=== PATIENT | male | born 1935 | race Caucasian/White ===

== ENCOUNTER → 2018-05-27 05:00 | Outpatient (REF) | payer MEDICARE, SELFPAY ==
[2018-05-27 07:35] LABS: Absolute Lymphocyte Count 2.73 X10^3/ul (0.83-4.51); Absolute Neutrophil Count 3.3 X10^3/uL (2.0-7.7); Basophil# 0.07 X10^3/uL; Eosinophil# 0.46 X10^3/uL; Eosinophils% 6.5 % (0-5); Hematocrit 36.9 % (40-54); Lymphocyte # 2.73 X10^3/ul (4.0); Lymphocyte % 38.5 % (19-41); Mean Corp Hgb Conc 32.5 g/gl (32-36); Mean Corpuscular Hgb 29.8 pg (27.0-32.0); Mean Corpuscular Volume 91.6 fL (80-94); Mean Platelet Vol. 10.1 fl (6.2-12.0); Monocyte# 0.55 X10^3/uL; Monocyte% 7.8 % (0-10); Neutrophil # 3.28 X10^3/uL (2.7-7.7); Neutrophil % 46.2 % (47-70); Platelet Count 205 K/mm3 (150-450); RBC Distribution Width CV 12.9 % (11.6-14.6); RBC Distribution Width SD 41.9 fl (35.1-43.9); Red Blood Count 4.03 M/mm3 (4.6-6.2); White Blood Count 7.1 K/mm3 (4.4-11.0)
[2018-05-27 07:37] LABS: POSITIVE COUNT NO; POSITIVE DIFFERENTIAL NO; POSITIVE MORPHOLOGY NO
[2018-05-27 07:51] LABS: Hemoglobin A1c 8.4 % (4.2-6.3)
[2018-05-27 07:53] LABS: Cholesterol 143 mg/dL (200); High Density Lipoprotein 51 mg/dL; Triglycerides 134 mg/dL; Very Low Density Lipoprotein 27 mg/dL (5-40)
== END ==
LOC: OLS.AVEB 05:00
PROVIDERS: Visit Provider Student in an Organized Health Care Education/Training Program
DX: I48.91 Unspecified atrial fibrillation (principal); E78.5 Hyperlipidemia, unspecified
CPT/HCPCS: 36415; 80061; 83036; 85025

== ENCOUNTER 2019-11-12 10:03 | Emergency (ER) | payer MEDICARE, OTHER, SELFPAY ==
[2019-11-12 10:04] VITALS: BP 151/69; PULSE 87; RESP 16; TEMP 36.2; O2SAT 96; BMI 30.4
--- NOTE | 2019-11-12 10:23 | CT_ITS ---
STUDY: CT BRAIN WITHOUT CONTRAST REASON FOR EXAM: Male, 84 years old. Trauma, fell 2 days ago, complains of headache, neck pain/stiffness. Hx prostate cancer, diabetes, hypertension. RADIATION DOSAGE (If Supplied By Facility): CTDIvol = ( 44.99 ) mGy, DLP = ( 796.11 ) mGycm TECHNIQUE: Transaxial CT imaging of the brain was performed without administration of intravenous contrast material. Individualized dose optimization techniques were used for this CT. COMPARISON: 12/02/2016 FINDINGS: Normal soft tissue structures. Normal calvarium. There is moderate cerebral atrophy with widening of the extra-axial spaces and ventricular dilatation. There are areas of decreased attenuation within the white matter tracts of the supratentorial brain, consistent with microvascular disease changes. Normal basal ganglia and thalami. Normal brainstem. Normal cerebellum. There is no intracranial hemorrhage. There are no findings of an acute ischemic infarction. There is mucoperiosteal inflammatory disease of the paranasal sinuses consistent with moderate chronic sinusitis. CT/Brain/Head without Contrast IMPRESSION: Chronic involutional changes of the brain. Electronically Signed: Corey Perez MD at 11:33 EDT Tel , Service support ,
--- NOTE | 2019-11-12 10:23 | CT_ITS ---
STUDY: CT CERVICAL SPINE WITHOUT CONTRAST REASON FOR EXAM: Male, 84 years old. Trauma, fell 2 days ago, complains of headache, neck pain/stiffness. Hx prostate cancer, diabetes, hypertension. RADIATION DOSAGE (If Supplied By Facility): CTDIvol = ( 24.36 ) mGy, DLP = ( 552.07 ) mGycm TECHNIQUE: High resolution transaxial imaging was performed without contrast material. Sagittal and coronal images were reconstructed. Individualized dose optimization techniques were used for this CT. COMPARISON: 12/02/2016 FINDINGS: Normal craniovertebral junction. There are degenerative changes of the anterior atlantoaxial articulation. Acute nondisplaced fracture through the base of the odontoid process consistent with a type II dens fracture. Normal cervical lordosis. Normal vertebral bodies and posterior osseous elements. C2-3: Mild left facet hypertrophy with ankylosis of the facet joint. No spinal stenosis or neural foraminal stenosis. C3-4: Moderate right facet hypertrophy with ankylosis of the facet joint. No spinal stenosis or neural foraminal stenosis. C4-5: Moderate right facet hypertrophy. No spinal stenosis or neural foraminal stenosis. C5-6: Mild broad disc osteophyte complex produces mild spinal stenosis and mild bilateral neural foraminal stenosis. C6-7: Mild broad disc osteophyte complex produces mild spinal stenosis and mild bilateral neural foraminal stenosis. C7-T1: Normal endplates. Normal disc height and morphology. Normal central canal and intervertebral neuroforamina. Normal visualized soft tissue structures. CT/Spine Cervical without Contras IMPRESSION: Acute nondisplaced type II dens fracture. Electronically Signed: Corey Perez MD at 11:32 EDT Tel , Service support ,
--- NOTE | 2019-11-12 10:27 | ED.DCSUM_ITS ---
- ER Visit Summary Date of Service: 11/12/19 Chief Complaint: [Fall with head injury] History of Present Illness: The patient is a 84 M [presents to the emergency department after sustaining a fall 2 days ago. Per fdc staff patient try to pick something up off the floor while sitting causing him to lose his balance and actually fell backward striking the back of his head. No loss of consciousness. Patient apparently this morning was complaining of a headache and had unequal pupils per [facility] staff and sent to the ER for evaluation. Patient also complains of pain in his neck. He denies any paresthesias or weakness in extremities. He has had no nausea or vomiting. Patient states that at rest he really does not have much of a headache but when he moves he develops a headache. Patient has history of coronary artery disease, diabetes, hypertension, anemia, and mild dementia.] Physical Examination: [HEENT-PERRLA, EOMI. Cranial nerves II through XII grossly intact. TMs clear. Mucous membranes moist. No adenopathy. Patient has an area of slight erythema and superficial skin abrasion to the posterior occiput near the base of the neck. Patient has tenderness palpation over the C1-C2 area on exam. No bony step-offs noted. Patient has pain with range of mo tion in neck. Cardiovascular-regular rate and rhythm without murmur or ectopy Lungs-clear to auscultation, chest wall stable without crepitus or subcu emphysema Abdomen-normoactive bowel sounds, soft, nontender, no rebound or rigidity, no peritoneal signs. Extremities-intact ?4, normal range of motion, normal pulses, atraumatic] Test Results: [CT scan of the brain showed chronic involutional changes. CT of the C-spine showed nondisplaced dens fracture type II.] Emergency Department Course and Treatment: [Patient was placed in a cervical collar. Patient was discussed with [facility] at the request of family for transfer.] Treatment Plan: [Transfer to [facility] for neurosurgical evaluation] Disposition: [Transfer] Impression: [Mechanical fall C2 fracture] This note was generated with Quemulusation software. It may contain incorrect words, spelling, and punctuation that were not noted in review of the chart prior to signing ED Disposition - Plan for ED Patient: Referrals: [facility] [STAFF PHYSICIAN] -
[2019-11-12 12:04] VITALS: BP 167/70; PULSE 91; RESP 18; O2SAT 98
--- NOTE | 2019-11-12 12:30 | NURSING ---
THIS RN SPOKE TO [facility] BHAKTA. INFORMED THAT PT WILL BE TRANSFERRED TO [facility].
[2019-11-12 12:34] VITALS: BP 171/77; PULSE 97; RESP 18; O2SAT 98
--- NOTE | 2019-11-12 13:13 | ED.RN ---
PER PHYSICIANS 30 MINUTE DELAY ON ETA
== END 2019-11-12 13:55 | disposition short-term general hospital (02) ==
PROVIDERS: Emergency Provider Emergency Medicine; PCP Student in an Organized Health Care Education/Training Program
DX: S12.112A Nondisplaced Type II dens fracture, initial encounter for closed fracture (principal); S00.01XA Abrasion of scalp, initial encounter; W19.XXXA Unspecified fall, initial encounter; Y93.9 Activity, unspecified; Y92.9 Unspecified place or not applicable; I25.10 Atherosclerotic heart disease of native coronary artery without angina pectoris; E11.9 Type 2 diabetes mellitus without complications; I10 Essential (primary) hypertension; F03.90 Unspecified dementia, unspecified severity, without behavioral disturbance, psychotic disturbance, mood disturbance, and anxiety; D64.9 Anemia, unspecified; E78.00 Pure hypercholesterolemia, unspecified; Z79.82 Long term (current) use of aspirin; Z79.84 Long term (current) use of oral hypoglycemic drugs; Z79.899 Other long term (current) drug therapy
CPT/HCPCS: 70450; 72125; 99283; A4216

== ENCOUNTER 2019-11-21 06:35 | Emergency (ER) | payer MEDICARE, OTHER, SELFPAY ==
[2019-11-21 06:38] VITALS: BP 129/51; PULSE 89; RESP 14; TEMP 36.3; O2SAT 98; BMI 26.3
--- NOTE | 2019-11-21 06:45 | CT_ITS ---
STUDY: CT BRAIN WITHOUT CONTRAST REASON FOR EXAM: Male, 84 years old. FALL RADIATION DOSAGE (If Supplied By Facility): CTDIvol = ( 44.99 ) mGy, DLP = ( 782.05 ) mGycm TECHNIQUE: Transaxial CT imaging of the brain was performed without administration of intravenous contrast material. Individualized dose optimization techniques were used for this CT. COMPARISON: Comparison is made with prior study dated 11/12/2019. FINDINGS: Normal soft tissue structures. Normal calvarium. There is moderate cerebral atrophy with widening of the extra-axial spaces and ventricular dilatation. There are areas of decreased attenuation within the white matter tracts of the supratentorial brain, consistent with microvascular disease changes. Stable small old lacunar infarcts involving the basal ganglia bilaterally. Normal brainstem. There is mild cerebellar atrophy. There is no intracranial hemorrhage. There are no findings of an acute ischemic infarction. Atherosclerotic calcification of the vertebral arteries and cavernous portions of the internal carotid arteries bilaterally. Small level in the left maxillary sinus and left sphenoid sinus. Mucosal thickening of the ethmoid sinuses bilaterally. CT/Brain/Head without Contrast IMPRESSION: Chronic involutional changes of the brain. Electronically Signed: Ga Forrest, at 8:16 EDT , Service support ,
--- NOTE | 2019-11-21 06:45 | CT_ITS ---
STUDY: CT CERVICAL SPINE WITHOUT CONTRAST REASON FOR EXAM: Male, 84 years old. FALL RADIATION DOSAGE (If Supplied By Facility): CTDIvol = ( 23.11 ) mGy, DLP = ( 543.97 ) mGycm TECHNIQUE: High resolution transaxial imaging was performed without contrast material. Sagittal and coronal images were reconstructed. Individualized dose optimization techniques were used for this CT. COMPARISON: Comparison is made with prior study dated 11/12/2019. FINDINGS: Normal craniovertebral junction. There are degenerative changes of the anterior atlantoaxial articulation. Stable nondisplaced fracture at the base of the odontoid being compared with the type II dens fracture. Normal cervical lordosis. Normal vertebral bodies and posterior osseous elements. C2-3: Facet joint osteoarthritis and hypertrophy. Uncovertebral arthrosis. C3-4: Facet joint osteoarthritis and hypertrophy worse on the right side. Uncovertebral arthrosis. Moderate degree of right neural foraminal stenosis. C4-5: Facet joint osteoarthritis and hypertrophy more prominent on the right side. Moderate degree of right neural foraminal stenosis. C5-6: Disc space narrowing. Facet joint osteoarthritis and hypertrophy worse on the left side. Uncovertebral arthrosis. Bilateral neural foraminal stenosis more prominent on the left side. C6-7: Spondylolysis. Facet joint osteoarthritis. Mild bilateral neural foraminal stenosis. C7-T1: Normal endplates. Normal disc height and morphology. Normal central canal and intervertebral neuroforamina. Atherosclerotic calcification of the carotid bifurcations. CT/Spine Cervical without Contras IMPRESSION: Multilevel degenerative changes, as described above. Stable appearance of the nondisplaced fracture at the base of the dens. Electronically Signed: Ga Forrest, at 8:19 EDT , Service support ,
--- NOTE | 2019-11-21 06:59 | ED.DCSUM_ITS ---
History of Present Illness Narrative: Patient presenting from the [facility] secondary to concerns for a fall. Patient has been admitted at the [facility] since the secondary to a nondisplaced C2 fracture. He supposed to be in a cervical collar, but only intermittently wears it secondary to his underlying dementia. Patient reportedly had some falls tonight. Patient is demented, is unable to provide additional history. Patient states that I have a cracked back but denies any pain unless he is moving. He denies any numbness or weakness. Review of systems otherwise negative through the patient. <RadhikaRoverto - Last Filed: 11/21/19 06:59> <Eliezer Ramirez - Last Filed: 11/21/19 08:54> Chief Complaint: Fall Past Medical History Prior records reviewed: Yes Past Medical History: - - Dementia, C2 fracture Surgical History: appendectomy Smoking Status: Never smoker <RadhikaRoverto - Last Filed: 11/21/19 06:59> <Eliezer Ramirez - Last Filed: 11/21/19 08:54> - Allergies and Home Meds Allergies/Adverse Reactions: Allergies No Known Allergies Allergy (Verified 11/12/19 10:06) Primary Care Physician: Wilner Serna MD [Primary Care Provider] - Keep Cecy appointment Review of Systems ROS: Unable to Obtain - Limited secondary to dementia <Roverto Garrido - Last Filed: 11/21/19 06:59> Physical Exam Vital Signs/Narrative: Vital Signs Temp Pulse Resp BP Pulse Ox 11/21/19 06:38 97.3 F L 89 14 129/51 H 98 Inital Vital Signs reviewed: Yes General: Well nourished, Well developed Head: Normocephalic, Atraumatic Eyes: Perrl, EOMI ENT: - - Patient does not complain of any midline neck tenderness Neck: Nontender. Negative for: Spinal Tenderness Cardiovascular: Regular rate, Regular rhythm, - - 2+ radial pulses bilaterally symmetric Respiratory: No distress, CTA bilaterally, Chest nontender Abdomen: Soft, Nontender, Nondistended, Normal bowel sounds Back: Nontender, - - No step-offs noted Extremeties: Extremities are atraumatic, no evidence of deformity. No limitations of range of motion. Skin: Normal color, No rash Neurological: Alert, - - Patient is alert to person, no lateralizing neurological deficits <RadhikaRoverto - Last Filed: 11/21/19 06:59> Vital Signs/Narrative: Vital Signs Temp Pulse Resp BP Pulse Ox 11/21/19 06:38 97.3 F L 89 14 129/51 H 98 <Eliezer Ramirez - Last Filed: 11/21/19 08:54> Diagnostic/Tx/Re-eval - Medical Decision Making Patient was seen and evaluated by myself initially in the emergency department. He presented secondary to a fall. He has no outward signs of trauma. He did come in without his cervical collar on, this was replaced by nursing staff. Repeat CT scan of the brain and cervical spine were ordered, there were no other outward signs of trauma, no other indication for imaging. Patient will be signed out to the oncoming physician will follow up on the patient's radiology studies and disposition the patient. <RadhikaRoverto - Last Filed: 11/21/19 06:59> Clinical Impression(s) from Imaging Studies Brain CT 11/21/19 06:45 IMPRESSION: Chronic involutional changes of the brain. Electronically Signed: Ga Forrest, at 8:16 EDT , Service support , Cervical Spine CT 11/21/19 06:45 IMPRESSION: Multilevel degenerative changes, as described above. Stable appearance of the nondisplaced fracture at the base of the dens. Electronically Signed: Ga Forrest, at 8:19 EDT , Service support , - Medical Decision Making CT is returned with no acute findings. [facility] Instructions to continue wearing collar with fall precautions. <Eliezer Ramirez - Last Filed: 11/21/19 08:54> ED Disposition <RadhikaRoverto - Last Filed: 11/21/19 06:59> <Eliezer Ramirez - Last Filed: 11/21/19 08:54> - Plan for ED Patient: Disposition: [facility] Facility Diagnosis: Fall, Closed head injury, Closed C2 fracture Instructions: ED Head Injury Adult Referrals: Wilner Serna MD [Primary Care Provider] - Keep Cecy appointment Additional Instructions: You need to be wearing your cervical collar at all times Fall precautions.
[2019-11-21 09:33] VITALS: PULSE 87; RESP 18; O2SAT 97
--- NOTE | 2019-11-21 10:22 | CM.ED ---
Social Work Consult: Support/Resources Informant: SUMIT Rico Met with patient/patient daughter in room. Introduced self and protective services social worker role. Daughter, Zaynab inquiring about transitioning patient to a different long-term home. Patient currently is a resident at [facility]. Zaynab is wanting patient to transfer to the [facility]. Currently patient has already been discharged from the Emergency Room. Zaynab aware that transfer will not be possible today but advised by this protective services social worker to reach out to the protective services social worker at the [facility]. This protective services social worker explaining the process of a transfer and answering Zaynab's questions in regards to Medicare Skilled benefit. Zaynab thanking this protective services social worker. Active listening and support provided. Transportation now arriving to bring patient back to the [facility]. Mickie Troy MSW, ROSIE
== END 2019-11-21 10:30 | disposition skilled nursing facility (03) ==
PROVIDERS: Emergency Provider Emergency Medicine; PCP Family Medicine
DX: S12.112A Nondisplaced Type II dens fracture, initial encounter for closed fracture (principal); S09.90XA Unspecified injury of head, initial encounter; W19.XXXA Unspecified fall, initial encounter; Z91.81 History of falling; Y93.9 Activity, unspecified; Y92.9 Unspecified place or not applicable; F03.90 Unspecified dementia, unspecified severity, without behavioral disturbance, psychotic disturbance, mood disturbance, and anxiety; Z79.899 Other long term (current) drug therapy
CPT/HCPCS: 70450; 72125; 99284

== ENCOUNTER 2021-05-16 15:00 | Inpatient (IN) | payer MEDICARE, OTHER, SELFPAY ==
[2021-05-16] VITALS (10 sets, daily range): BP systolic 107–135; BP diastolic 48–74; PULSE 75–100; RESP 14–20; TEMP 36.4–37.1; O2SAT 94–98; BMI 25.2; BMI 22.3
--- NOTE | 2021-05-16 15:09 | CT_ITS ---
STUDY: CT BRAIN WITHOUT CONTRAST REASON FOR EXAM: Male, 85 years old. Confusion RADIATION DOSAGE (If Supplied By Facility): CTDIvol = ( 44.99 ) mGy, DLP = ( 812.98 ) mGycm TECHNIQUE: Transaxial CT imaging of the brain was performed without administration of intravenous contrast material. Individualized dose optimization techniques were used for this CT. COMPARISON: 11/21/2019 FINDINGS: Normal soft tissue structures. Normal calvarium. There is mild cerebral atrophy with widening of the extra-axial spaces and ventricular dilatation. There are areas of decreased attenuation within the white matter tracts of the supratentorial brain, consistent with microvascular disease changes. Normal basal ganglia and thalami. Normal brainstem. Normal cerebellum. There is no intracranial hemorrhage. There are no findings of an acute ischemic infarction. Normal visualized paranasal sinuses. CT/Brain/Head without Contrast IMPRESSION: No acute intracranial hemorrhage or mass effect. Electronically Signed: Roldan Quispe MD (Brooks) at 16:19 EDT Reading Location ID and State: / [place] , Service support ,
--- NOTE | 2021-05-16 15:09 | EKG12_ITS ---
Test Reason : Blood Pressure : / mmHG Vent. Rate : 080 BPM Atrial Rate : 080 BPM P-R Int : 232 ms QRS Dur : 096 ms QT Int : 334 ms P-R-T Axes : 029 022 096 degrees QTc Int : 385 ms Sinus rhythm with 1st degree A-V block with Premature atrial complexes Anteroseptal infarct , age undetermined Abnormal ECG Confirmed by MICHA PATEL, ELVIS ([id number]), staff editor JORY JIMENEZ ([id number]) on 05/19/2021 11:04:52 A M Referred By: SANDHYA Confirmed By:JUDY MUSE MD
--- NOTE | 2021-05-16 15:10 | EDS_ITS ---
HPI History of Present Illness Chief Complaint: Alt LOC Narrative Narrative: [facility] with reported altered level of consciousness. He is usually alert and oriented x2, and is an assist 1 according to the RN. However, they noticed today that he has had increased confusion along with needing more assistance to a level 2 or 3. Patient denies any fever or chills, no problems with cough. He states he feels pretty good. History and physical is limited secondary to age, and he is hard of hearing. [facility] Medical History Anemia Atherosclerotic cardiovascular disease BPH (benign prostatic hyperplasia) Bronchitis Dysphagia HTN (hypertension) Hyperlipemia Low back pain Sciatica Type 2 diabetes mellitus Home Medications metformin 1,000 mg PO BIDCM 02/02/13 [History Last Taken 02/02/13] albuterol sulfate 180 mcg INHALATION Q4H PRN 05/16/21 [History Last Taken Unknown] aspirin [Aspirin Low Dose] 81 mg PO DAILY 05/16/21 [History Last Taken Unknown] cholecalciferol (vitamin D3) 25 mcg PO DAILY 05/16/21 [History Last Taken Unknown] cyanocobalamin (vitamin B-12) [Vitamin B-12] 1,000 mcg PO DAILY 05/16/21 [History Last Taken Unknown] hydrochlorothiazide 12.5 mg PO DAILY 05/16/21 [History Last Taken Unknown] insulin glargine [Lantus Solostar U-100 Insulin] 16 unit SUBCUT DAILY 05/16/21 [History Last Taken Unknown] insulin lispro [Humalog KwikPen Insulin] 2 unit SUBCUT TIDCM 05/16/21 [History Last Taken Unknown] metoprolol tartrate 25 mg PO BID 05/16/21 [History Last Taken Unknown] ondansetron HCl 4 mg PO Q8H PRN 05/16/21 [History Last Taken Unknown] rosuvastatin 10 mg PO DAILY 05/16/21 [History Last Taken Unknown] tamsulosin 0.8 mg PO DAILY 05/16/21 [History Last Taken Unknown] Allergy/AdvReac Type Severity Reaction Status Date / Time No Known Allergies Allergy Verified 07/24/20 14:40 Social History Smoking Status: Never smoker ROS ROS ED ROS Narrative Review of systems limited secondary to age/memory problems Constitutional: No fever, no chills. HEENT: No sore throat. No neck pain. No loss of vision. No rhinorrhea. Cardiovascular: No chest pain. No palpitations. No pedal edema. Respiratory: No cough, no shortness of breath. Abdominal: No abdominal pain. No nausea. No vomiting. Genitourinary: No dysuria. No hematuria. Musculoskeletal: No myalgias. No arthralgias. Neurologic: No headaches. No dizziness. No lightheadedness. Skin: No rash. No change in color. Psychiatric: No depression. No anxiety. EXAM Physical Exam Narrative Exam Narrative: Afebrile. Vital signs noted. HEENT: Normocephalic. Atraumatic. PERRL, EOMI. Neck soft and supple. No point tenderness or step off. Cardiovascular: Regular rate and rhythm. No murmurs, rubs, or gallops appreciated. Respiratory: No tachypnea. Lungs clear to auscultation bilaterally. Gastrointestinal: Abdomen soft, nontender, with normoactive bowel sounds. No rebound or guarding. Neurological: Awake. Alert. Nonfocal, nonlateralizing. Skin: No rash. Normal color. No pallor. Decubitus ulcer on left heel with serosanguineous drainage. Musculoskeletal: No pedal edema. Full range of motion extremities. Const Vital Signs: 05/16/21 15:04 05/16/21 15:09 05/16/21 16:59 Temperature 98.0 F 98.0 F 98.4 F Temperature Source Oral Oral Temporal Pulse Rate 83 83 75 Respiratory Rate 20 H 20 H 18 Respiratory Pattern Normal Blood Pressure 126/59 H 126/59 H 120/55 L Blood Pressure Mean 81 81 76 Pulse Ox 96 96 98 Oxygen Delivery Method Room Air Room Air Room Air MDM MDM MDM Narrative Medical decision making narrative: Comprehensive work-up was pursued. Patient has normal white count of 9.4, hemoglobin slightly low 11.9. Normal platelet count of 175. He has hypokalemia of 2.6. He was started on 40 mEq intravenously as replacement. Sodium low at 135. Creatinine is slightly elevated above his baseline at 1.56 with a BUN of 32 consistent with dehydration. His lactic acid is elevated at 3.1. However, I do not feel that he meets any sepsis criteria as of yet as he has a normal white count and is afebrile here. He is not tachycardic currently. Urinalysis shows 50-100 WBCs. He was started on Rocephin for this. Given his hypokalemia, dehydration, and UTI, I discussed the patient with Dr. Mckenzie who will admit him to the PCU. Patient is in stable condition. Lab Data Attestation: I reviewed the patient's lab results. Labs: Laboratory Results - last 24 hr 05/16/21 05/16/21 05/16/21 15:33 15:33 15:33 WBC 9.4 RBC 3.91 L Hgb 11.9 L Hct 34.0 L MCV 87.0 MCH 30.4 MCHC 35.0 RDW Std Deviation 43.5 RDW Coeff of [place] 13.8 Plt Count 175 MPV 10.1 Immature Gran % (Auto) 0.400 Neut % (Auto) 83.8 H Lymph % (Auto) 11.0 L [place] % (Auto) 4.6 Eos % (Auto) 0.1 Baso % (Auto) 0.1 Absolute Neuts (auto) 7.9 H Absolute Lymphs (auto) 1.04 Nucleated RBC % 0 Sodium 135 L Potassium 2.6 L* Chloride 100 Carbon Dioxide 25.0 Anion Gap 10 BUN 32 H Creatinine 1.56 H Estim Creat Clear Calc 30.67 Est GFR (MDRD) Af Amer 54 L Est GFR (MDRD) Non-Af 45 L BUN/Creatinine Ratio 20.5 H Glucose 166 H Lactic Acid 3.1 H* Calcium 9.2 Total Bilirubin 1.60 H AST 48 H ALT 34 Alkaline Phosphatase 77 Total Protein 6.7 Albumin 2.8 L Globulin 3.9 Albumin/Globulin Ratio 0.7 L Urine Color Urine Clarity Urine pH Ur Specific [place] Urine Protein Urine Glucose (UA) Urine Ketones Urine Occult Blood Urine Nitrite Urine Bilirubin Urine Urobilinogen Ur Leukocyte Esterase Urine RBC Urine WBC Ur Squamous Epith Cells Ur Transition Epith Cell Urine Bacteria Urine Mucus 05/16/21 17:05 WBC RBC Hgb Hct MCV MCH MCHC RDW Std Deviation RDW Coeff of [place] Plt Count MPV Immature Gran % (Auto) Neut % (Auto) Lymph % (Auto) [place] % (Auto) Eos % (Auto) Baso % (Auto) Absolute Neuts (auto) Absolute Lymphs (auto) Nucleated RBC % Sodium Potassium Chloride Carbon Dioxide Anion Gap BUN Creatinine Estim Creat Clear Calc Est GFR (MDRD) Af Amer Est GFR (MDRD) Non-Af BUN/Creatinine Ratio Glucose Lactic Acid Calcium Total Bilirubin AST ALT Alkaline Phosphatase Total Protein Albumin Globulin Albumin/Globulin Ratio Urine Color Yellow Urine Clarity Sl. Cloudy Urine pH 6.0 Ur Specific [place] 1.020 Urine Protein 100 H Urine Glucose (UA) 50 H Urine Ketones 5 H Urine Occult Blood 25 H Urine Nitrite Positive H Urine Bilirubin Negative Urine Urobilinogen 1 H Ur Leukocyte Esterase 500 H Urine RBC 0-5 SEEN Urine WBC 50-100 SEEN Ur Squamous Epith Cells 0 SEEN Ur Transition Epith Cell 0-5 SEEN Urine Bacteria 2+ Urine Mucus 0 SEEN Radiography Diagnostic Testing: Clinical Impression(s) from Imaging Studies Brain CT 05/16/21 15:09 IMPRESSION: No acute intracranial hemorrhage or mass effect. Electronically Signed: Roldan Quispe MD (Brooks) at 16:19 EDT Reading Location ID and State: / [place] , Service support , Chest X-Ray 05/16/21 16:10 IMPRESSION: 1. No airspace consolidation or pleural effusion. Electronically Signed: Roldan Quispe MD (Brooks) at 16:20 EDT , Treatment and Re-Evaluation Narrative: Comprehensive work-up was pursued. According to his paperwork, patient has diabetes, hypertension, hypercholesterolemia. He will be worked up for debility. Discharge Plan Dx/Rx/DC Orders Clinical Impression: Hypokalemia, Dehydration, Generalized weakness, Dementia, UTI (urinary tract infection) Disposition Disposition: Acute Care Hospital [facility]
[2021-05-16 15:51] LABS: Absolute Lymphocyte Count 1.04 X10^3/uL (0.83-4.51); Absolute Neutrophil Count 7.9 X10^3/uL (2.0-7.7); Basophil# 0.01 X10^3/uL; Basophil% 0.1 % (0-1); Eosinophil# 0.01 X10^3/uL; Eosinophils% 0.1 % (0-5); Hemoglobin 11.9 g/dL (13.0-16.5); Lymphocyte # 1.04 X10^3/ul (0.83-4.51); Mean Corpuscular Hgb 30.4 pg (27.0-32.0); Mean Platelet Vol. 10.1 fl (6.2-12.0); Monocyte# 0.43 X10^3/uL; Monocyte% 4.6 % (0-10); NRBC Flagged by Analyzer 0 % (0-5); Neutrophil # 7.89 X10^3/uL (2.7-7.7); Neutrophil % 83.8 % (47-70); Platelet Count 175 K/mm3 (150-450); RBC Distribution Width CV 13.8 % (11.6-14.6); RBC Distribution Width SD 43.5 fl (35.1-43.9); Red Blood Count 3.91 M/mm3 (4.6-6.2); White Blood Count 9.4 K/mm3 (4.4-11.0)
[2021-05-16 16:05] LABS: ALB/GLOB Ratio 0.7 RATIO (0.9-2.4); AST(SGOT) 48 U/L (15-37); Alanine Aminotransfer ALT/SGPT 34 U/L (16-61); Albumin, Serum 2.8 g/dL (3.2-5.0); Alkaline Phosphatase 77 U/L (45-117); Anion Gap 10 (5-15); BUN 32 mg/dL (7-18); BUN/Creat Ratio 20.5 RATIO (10-20); Calcium,Total 9.2 mg/dL (8.5-10.1); Chloride 100 mmol/L (98-107); Creatinine, Serum 1.56 mg/dL (0.70-1.30); EST Glomerular Filtration Rate 45 mL/min (>60); Est Glom Filt Rate - Afr Amer 54 mL/min (>60); Estimated Creatinine Clearance 30.67 ml/min; Globulin 3.9 g/dL (2.2-4.2); Glucose 166 mg/dL (74-106); Potassium 2.6 mmol/L (3.5-5.1); Protein, Total 6.7 g/dL (6.4-8.2); Sodium Level 135 mmol/L (136-145)
--- NOTE | 2021-05-16 16:10 | RAD_ITS ---
STUDY: X-RAY CHEST REASON FOR EXAM: Male, 85 years old. Increasing confusion TECHNIQUE: AP COMPARISON: 02/02/2013 FINDINGS: EKG leads project over the chest. Sternal wires and mediastinal surgical clips compatible with prior CABG. Lungs are underexpanded. There is no demonstrated pleural abnormality. There is mild cardiac enlargement. Normal mediastinum and cuco. Normal visualized pulmonary arteries. There is atherosclerotic calcification of the aortic arch with tortuosity. No acute bony process. There is no demonstrated abnormality of the visualized soft tissue structures of the upper abdomen. RAD/Chest 1 View (Portable) IMPRESSION: 1. No airspace consolidation or pleural effusion. Electronically Signed: Roldan Quispe MD (Brooks) at 16:20 EDT ,
[2021-05-16 16:15] LABS: Lactic Acid 3.1 mmol/L (0.4-1.9)
[2021-05-16] MEDS: Potassium Chloride 10mEq/100mL 10 MEQ/100 ML IV.SOLN. 100 MEQ IV BOLUS ×4 (17:01→20:09)
[2021-05-16 17:11] LABS: Mucous, Urine 0 SEEN /hpf (<or=2+); Squamous Epithelial Cells - UA 0 SEEN /hpf (0-5)
[2021-05-16 17:12] LABS: Color, Urine Yellow (Yellow); Glucose, Dipstick 50 mg/dl (Normal); Ketone-Dipstick 5 mg/dl (Negative); Leukocyte Esterase-Dipstick 500 /ul (Negative); Nitrite-Dipstick Positive (Negative); Occult Blood-Urine 25 /ul (Negative); Protein-Dipstick 100 mg/dl (Negative); Urine Bilirubin Dipstick Negative (Negative); Urine Clarity Sl. Cloudy (Clear); Urine Urobilinogen 1 mg/dl (Normal)
[2021-05-16 17:25] LABS: Red Blood Cells-Urine 0-5 SEEN /hpf (0-5); White Blood Cells 50-100 SEEN /hpf (0-5)
[2021-05-16 17:26] LABS: Bacteria 2+ /hpf (None Seen); Transitional Epithelial - Ur 0-5 SEEN /hpf (0-5)
[2021-05-16] MEDS: 0.9% Normal Saline 1,000 ML 999 ML IV (17:44)
--- NOTE | 2021-05-16 17:50 | PCM.HP.STD ---
Documented by User: Emeterio WASSERMAN 05/16/21 18:04 HPI - General General Date of Admission: 05/16/21 Date of Service: 05/16/21 Chief Complaint: Altered mental status HPI Narrative MARIA EUGENIA DAVID is an 85-year-old male who presents to the ED at [facility] on 05/16/2021 for evaluation and management of altered mental status. History was obtained from patient's daughter who was at bedside as patient is altered at baseline secondary to dementia. Patient's daughter reports that she received a call from the assisted living facility who reported that the patient was confused more than usual and needed more assistance from the nursing staff. Patient denies any symptoms to include difficulty with urinating, fever, chills or N/V/D. Vital signs are stable and patient is afebrile. CBC does not demonstrate a leukocytosis and is otherwise unremarkable. BMP shows sodium of 135, potassium of 2.6, creatinine at 1.56 with a BUN of 32, lactic acid is elevated at 3.1. UA demonstrates yellow cloudy urine with positive nitrites, 500 leukocyte esterase, 50-100 urine WBCs and 2+ bacteria. Brain CT does not show any acute intracranial hemorrhage or mass-effect. Chest x-ray does not demonstrate any acute cardiopulmonary process. Patient was initiated on fluids, potassium and Rocephin in the ED. [facility] Medical History (Updated 05/16/21 @ 18:09 by Kenna Benitez) Anemia Atherosclerotic cardiovascular disease BPH (benign prostatic hyperplasia) Bronchitis Dysphagia Former smoker HTN (hypertension) Hyperlipemia Low back pain Murmur, cardiac Sciatica Type 2 diabetes mellitus Home Medications metformin 1,000 mg PO BIDCM 02/02/13 [History Last Taken 02/02/13] albuterol sulfate 180 mcg INHALATION Q4H PRN 05/16/21 [History Last Taken Unknown] aspirin [Aspirin Low Dose] 81 mg PO DAILY 05/16/21 [History Last Taken Unknown] cholecalciferol (vitamin D3) 25 mcg PO DAILY 05/16/21 [History Last Taken Unknown] cyanocobalamin (vitamin B-12) [Vitamin B-12] 1,000 mcg PO DAILY 05/16/21 [History Last Taken Unknown] hydrochlorothiazide 12.5 mg PO DAILY 05/16/21 [History Last Taken Unknown] insulin glargine [Lantus Solostar U-100 Insulin] 16 unit SUBCUT DAILY 05/16/21 [History Last Taken Unknown] insulin lispro [Humalog KwikPen Insulin] 2 unit SUBCUT TIDCM 05/16/21 [History Last Taken Unknown] metoprolol tartrate 25 mg PO BID 05/16/21 [History Last Taken Unknown] ondansetron HCl 4 mg PO Q8H PRN 05/16/21 [History Last Taken Unknown] rosuvastatin 10 mg PO DAILY 05/16/21 [History Last Taken Unknown] tamsulosin 0.8 mg PO DAILY 05/16/21 [History Last Taken Unknown] Allergy/AdvReac Type Severity Reaction Status Date / Time No Known Allergies Allergy Verified 07/24/20 14:40 Family History no significant family his no significant family history Surgical History (Updated 05/16/21 @ 18:09 by Kenna Benitez) Hx of CABG Surgical History no surgical history no surgical history Social History Smoking Status: Former smoker ROS Review of Systems ROS Unobtainable: due to encephalopathy Vital Signs Vital Signs Vital Signs: 05/16/21 15:04 05/16/21 15:09 05/16/21 16:59 Temperature 98.0 F 98.0 F 98.4 F Temperature Source Oral Oral Temporal Pulse Rate 83 83 75 Respiratory Rate 20 H 20 H 18 Respiratory Pattern Normal Blood Pressure 126/59 H 126/59 H 120/55 L Blood Pressure Mean 81 81 76 Pulse Ox 96 96 98 Oxygen Delivery Method Room Air Room Air Room Air Weight Weight: 156 lb 8.451 oz Body Mass Index (BMI) 25.2 Physical Exam Const Orientation / Consciousness: confused, disoriented and lethargic HEENT normocephalic, head/scalp atraumatic and hearing grossly normal bilaterally Eyes PERRL, EOMs intact bilaterally and conjunctivae normal Neck no lymphadenopathy and no JVD Resp normal respiratory effort, no retractions and no use of accessory muscles Cardio regular rate and regular rhythm Heart Sounds: murmur systolic GI normal to inspection, nondistended, normoactive bowel sounds Extremity normal to inspection Skin no rashes or lesions noted Neuro CN's II-XII intact bilaterally Psych affect normal Results Lab / Micro Data Result Diagrams: 05/16/21 15:33 05/16/21 15:33 Labs: Laboratory Results - last 24 hr 05/16/21 15:33: WBC 9.4, RBC 3.91 L, Hgb 11.9 L, Hct 34.0 L, MCV 87.0, MCH 30.4, MCHC 35.0, RDW Std Deviation 43.5, RDW Coeff of [place] 13.8, Plt Count 175, MPV 10.1, Immature Gran % (Auto) 0.400, Neut % (Auto) 83.8 H, Lymph % (Auto) 11.0 L, [place] % (Auto) 4.6, Eos % (Auto) 0.1, Baso % (Auto) 0.1, Absolute Neuts (auto) 7.9 H, Absolute Lymphs (auto) 1.04, Nucleated RBC % 0 05/16/21 15:33: Sodium 135 L, Potassium 2.6 L*, Chloride 100, Carbon Dioxide 25.0, Anion Gap 10, BUN 32 H, Creatinine 1.56 H, Estim Creat Clear Calc 30.67, Est GFR (MDRD) Af Amer 54 L, Est GFR (MDRD) Non-Af 45 L, BUN/Creatinine Ratio 20.5 H, Glucose 166 H, Calcium 9.2, Total Bilirubin 1.60 H, AST 48 H, ALT 34, Alkaline Phosphatase 77, Total Protein 6.7, Albumin 2.8 L, Globulin 3.9, Albumin/Globulin Ratio 0.7 L 05/16/21 15:33: Lactic Acid 3.1 H* 05/16/21 17:05: Urine Color Yellow, Urine Clarity Sl. Cloudy, Urine pH 6.0, Ur Specific [place] 1.020, Urine Protein 100 H, Urine Glucose (UA) 50 H, Urine Ketones 5 H, Urine Occult Blood 25 H, Urine Nitrite Positive H, Urine Bilirubin Negative, Urine Urobilinogen 1 H, Ur Leukocyte Esterase 500 H, Urine RBC 0-5 SEEN, Urine WBC 50-100 SEEN, Ur Squamous Epith Cells 0 SEEN, Ur Transition Epith Cell 0-5 SEEN, Urine Bacteria 2+, Urine Mucus 0 SEEN Radiology Impression Brain CT 05/16/21 15:09 IMPRESSION: No acute intracranial hemorrhage or mass effect. Electronically Signed: Roldan Quispe MD ([place]) at 16:19 EDT , Chest X-Ray 05/16/21 16:10 IMPRESSION: 1. No airspace consolidation or pleural effusion. Electronically Signed: Roldan Quispe MD (Brooks) at 16:20 EDT Reading Location ID and State: / [place] , Service support , Assessment & Plan Assessment/Plan (1) Hypokalemia: (2) Metabolic encephalopathy: (3) Acute cystitis: (4) Lactic acidosis: PLAN: Patient is an 85-year-old male who presents to the ED at [facility] on 05/16/2021 for evaluation management of altered mental status. 1) acute cystitis Vital signs are stable and patient is afebrile. Patient without any complaints, although is acutely and chronically confused. UA demonstrates yellow cloudy urine, with positive nitrites, 500 leukocyte esterase, 50-100 urine WBCs and 2+ bacteria. Plan; admit to PCU, continue Rocephin, obtain urine and blood cultures, CBC and BMP in a.m., PT/OT eval ordered, case management consult ordered. 2) acute metabolic encephalopathy Secondary to #1, but complicated with a history of chronic dementia. Plan; as above. 3) lactic acidosis Likely related to above, although infection does not appear to be profound. Plan as above, will hold home metformin and initiate fluids. 4) hypokalemia Potassium is currently 2.6. Unclear etiology, patient's daughter denies any nausea, vomiting or diarrhea. Will replace with IV potassium and continue to monitor BMP. 5) ANDRE Creatinine mildly elevated above baseline at 1.5, will initiate gentle fluids and continue to monitor BMP. 7) dementia Complicates #1, not on any home regimen. 8) diabetes mellitus type 2 Hold home Metformin given #3, Accu-Cheks sliding scale insulin ordered. DVT prophylaxis - Heparin CODE STATUS: DNRCC-A, no intubation. Patient seen by Emeterio Butler PA-C, under the supervision of Dr. Mckenzie. Time spent on patient care: 25 minutes. Documented by User: Dr. Bebeto Mckenzie DO 05/16/21 19:12 HPI - General General Date of Admission: 05/16/21 [facility] Medical History (Updated 05/16/21 @ 18:09 by Kenna Benitez) Anemia Atherosclerotic cardiovascular disease BPH (benign prostatic hyperplasia) Bronchitis Dysphagia Former smoker HTN (hypertension) Hyperlipemia Low back pain Murmur, cardiac Sciatica Type 2 diabetes mellitus Home Medications metformin 1,000 mg PO BIDCM 02/02/13 [History Last Taken 02/02/13] albuterol sulfate 180 mcg INHALATION Q4H PRN 05/16/21 [History Last Taken Unknown] aspirin [Aspirin Low Dose] 81 mg PO DAILY 05/16/21 [History Last Taken Unknown] cholecalciferol (vitamin D3) 25 mcg PO DAILY 05/16/21 [History Last Taken Unknown] cyanocobalamin (vitamin B-12) [Vitamin B-12] 1,000 mcg PO DAILY 05/16/21 [History Last Taken Unknown] hydrochlorothiazide 12.5 mg PO DAILY 05/16/21 [History Last Taken Unknown] insulin glargine [Lantus Solostar U-100 Insulin] 16 unit SUBCUT DAILY 05/16/21 [History Last Taken Unknown] insulin lispro [Humalog KwikPen Insulin] 2 unit SUBCUT TIDCM 05/16/21 [History Last Taken Unknown] metoprolol tartrate 25 mg PO BID 05/16/21 [History Last Taken Unknown] ondansetron HCl 4 mg PO Q8H PRN 05/16/21 [History Last Taken Unknown] rosuvastatin 10 mg PO DAILY 05/16/21 [History Last Taken Unknown] tamsulosin 0.8 mg PO DAILY 05/16/21 [History Last Taken Unknown] Allergy/AdvReac Type Severity Reaction Status Date / Time No Known Allergies Allergy Verified 07/24/20 14:40 Family History no significant family his Surgical History (Updated 05/16/21 @ 18:09 by Kenna Benitez) Hx of CABG Surgical History no surgical history Social History Smoking Status: Former smoker Results Lab / Micro Data Result Diagrams: 05/16/21 15:33 05/16/21 15:33 Charges/Coding Addendum Addendum: Patient was seen and examined independently of Emeterio Butler, he was brought by squad from his assisted living facility for evaluation of decreased mental status. Patient's daughter is in the room during the time of my examination, she states that the patient has underlying dementia and has been in assisted living for several years. She confirms that the patient is a DNR CC arrest without intubation. Work-up in the emergency room included labs: CBC was remarkable for hemoglobin of 11.9, chemistry profile was remarkable for sodium of 135, potassium of 2.6, BUN of 32, creatinine of 1.56, and glucose was 166. Patient's lactic acid was elevated at 3.1, bilirubin was 1.6 and AST was 48. Patient's urinalysis was positive for nitrites, there were 50-100 WBCs and +2 bacteria present. Patient had a chest x-ray which showed no evidence of acute disease or pleural effusion. Brain CT showed nothing acute. On examination he appeared his stated age, he appeared confused and was only able to say a few words during the time of my examination.. Vital signs as documented. Skin warm and dry and without overt rashes. Neck without JVD, neck was supple, trachea midline, thyroid was normal. Lungs clear bilaterally, normal air movement was noted. Heart exam notable for regular rhythm, there was a 3/6 systolic murmur noted at the apex and left sternal border, no rubs or gallops were noted. Abdomen unremarkable and without evidence of organomegaly, masses, or abdominal aortic enlargement. Bowel sounds are present, abdomen is not distended. Extremities-mild pretibial edema was noted bilaterally, no cyanosis was noted, no clubbing was noted. Neuro: Cranial nerves II through XII are grossly intact, no focal motor deficits were noted, sensation to light touch and pinprick intact, motor exam 5/5 throughout. Psych: Patient is alert, he is oriented as to self and place, he appears confused Impression #1 hypokalemia-patient will be admitted to PCU, he will receive potassium supplementation, labs will be monitored #2 dehydration-patient will be given IV fluids at 75 cc an hour, labs will be monitored #3 acute cystitis-patient was given IV Rocephin, he will be maintained on Rocephin on PCU #4 acute encephalopathy on a backdrop of known dementia-complicates care and clinical course, patient will be seen by PT and OT #5 acute debility-patient will be seen by PT and OT, it is likely he will need placement in a alf facility at least short-term when he is discharged from the hospital, patient is currently living in assisted living. #6 type 2 diabetes-patient's blood sugars will be monitored, sliding scale insulin will be used #7 lactic acidosis-possibly secondary to Metformin usage, I do not believe the patient is septic at this time #8 essential hypertension-patient will remain on his current medications I have reviewed Emeterio Butler's history and physical including his medical assessment and plan of care and with the above additions, endorse it. Total clinical time spent by myself addressing the patient's medical issues, reviewing the patient's medical records, and collaborating with the patient's care team: 45 minutes Visit Charges Inpatient E&M: 14960 Init Hosp L3
[2021-05-16] MEDS: Ceftriaxone 1 GM/50 ML BAG IV (18:10)
[2021-05-16] MEDS: 0.9% Normal Saline 1,000 ML 75 ML IV (18:56)
[2021-05-16 19:40] LABS: Reflex Lactate? Y
[2021-05-16 20:10] LABS: Magnesium 1.7 mg/dL (1.6-2.6)
[2021-05-16 21:05] LABS: Lactic Acid 1.3 mmol/L (0.4-1.9)
[2021-05-16] MEDS: Ondansetron 4 MG/2 ML Vial IV (21:08)
[2021-05-16] MEDS: 0.9% Saline Lock 10 ML Syringe IV (21:10)
[2021-05-16] MEDS: Heparin Injection (Vial) 5,000 UNIT/ML VIAL 5000 UNIT SC (21:59)
[2021-05-16 22:21] LABS: Bedside Glucose 113 mg/dL (74-106)
[2021-05-16] MEDS: Metoprolol Tartrate 25 MG Tablet PO (22:50)
[2021-05-17] VITALS (15 sets, daily range): BP systolic 115–151; BP diastolic 52–72; PULSE 73–100; RESP 18–22; TEMP 36.8–37.3; O2SAT 89–97
[2021-05-17] MEDS: Ondansetron 4 MG/2 ML Vial IV ×5 (00:28→23:37)
[2021-05-17 05:30] LABS: Absolute Lymphocyte Count 0.91 X10^3/uL (0.83-4.51); Absolute Neutrophil Count 7.1 X10^3/uL (2.0-7.7); Basophil# 0.01 X10^3/uL; Basophil% 0.1 % (0-1); Eosinophil# 0.02 X10^3/uL; Eosinophils% 0.2 % (0-5); Hemoglobin 10.4 g/dL (13.0-16.5); Lymphocyte # 0.91 X10^3/ul (0.83-4.51); Lymphocyte % 10.7 % (19-41); Mean Corp Hgb Conc 34.7 g/dL (32-36); Mean Corpuscular Volume 86.5 fL (80-94); Mean Platelet Vol. 10.8 fl (6.2-12.0); Monocyte% 5.9 % (0-10); NRBC Flagged by Analyzer 0 % (0-5); Neutrophil # 7.06 X10^3/uL (2.7-7.7); Neutrophil % 82.6 % (47-70); Platelet Count 185 K/mm3 (150-450); RBC Distribution Width CV 13.6 % (11.6-14.6); RBC Distribution Width SD 42.5 fl (35.1-43.9); Red Blood Count 3.47 M/mm3 (4.6-6.2); White Blood Count 8.5 K/mm3 (4.4-11.0)
[2021-05-17] MEDS: 0.9% Saline Lock 10 ML Syringe IV (05:30)
[2021-05-17 06:02] LABS: Anion Gap 6 (5-15); BUN 26 mg/dL (7-18); BUN/Creat Ratio 24.3 RATIO (10-20); Calcium,Total 8.2 mg/dL (8.5-10.1); Chloride 104 mmol/L (98-107); Creatinine, Serum 1.07 mg/dL (0.70-1.30); EST Glomerular Filtration Rate 70 mL/min (>60); Est Glom Filt Rate - Afr Amer 84 mL/min (>60); Glucose 173 mg/dL (74-106); Potassium 3.1 mmol/L (3.5-5.1); Sodium Level 135 mmol/L (136-145)
[2021-05-17] MEDS: Insulin Lispro 100 UNIT/ML INSULN.PEN SC ×4 (06:48→21:58)
[2021-05-17] MEDS: 0.9% Normal Saline 1,000 ML 100 ML IV ×2 (06:48→17:26)
[2021-05-17 07:00] LABS: Bedside Glucose 193 mg/dL (74-106)
[2021-05-17 07:52] LABS: Magnesium 1.9 mg/dL (1.6-2.6); Phosphorus 2.3 mg/dL (2.5-4.9)
[2021-05-17] MEDS: Heparin Injection (Vial) 5,000 UNIT/ML VIAL 5000 UNIT SC ×2 (09:42→21:58)
[2021-05-17] MEDS: Metoprolol Tartrate 25 MG Tablet PO ×2 (09:43→22:05)
[2021-05-17] MEDS: Tamsulosin HCl 0.4 MG Capsule 0.8 MG PO (09:43)
[2021-05-17] MEDS: Atorvastatin Calcium 20 MG Tablet PO (09:43)
[2021-05-17] MEDS: Ceftriaxone 1 GM/50 ML BAG IV (09:45)
[2021-05-17] MEDS: Aspirin E.C. 81 MG Tablet PO (09:45)
[2021-05-17] MEDS: Insulin Glargine-YFGN 100 UNIT/ML Pen 16 UNIT SC (09:53)
[2021-05-17] MEDS: Potassium Chloride 10mEq/100mL 10 MEQ/100 ML IV.SOLN. 100 MEQ IV BOLUS ×2 (10:27→12:10)
--- NOTE | 2021-05-17 11:19 | PN.HOSP_ITS ---
Documented by User: Emeterio WASSERMAN 05/17/21 11:26 Subjective Subjective Patient is a 85-year-old male comfortably lying in bed, alert and oriented x2. Mentation does appear improved from admission, although this is limited at baseline. Does not appear in acute distress. Objective Data Objective Data Vital Signs: Vital Signs Temp Pulse Resp BP Pulse Ox 98.3 F 80 18 146/61 H 96 05/17/21 09:25 05/17/21 09:43 05/17/21 09:25 05/17/21 09:43 05/17/21 09:25 Oxygen Delivery Method Room Air Weight: 155 lb 11.2 oz Body Mass Index (BMI) 22.3 Intake & Output: Intake and Output for Last 24 Hours 05/15/21 05/16/21 05/17/21 23:59 23:59 23:59 Intake Total 1948.33 / 1948.33 1000 / 1000 Output Total 150 / 150 Balance 1948.33 / 1848.33 850 / 850 Lab / Micro Data Result Diagrams: 05/17/21 04:04 05/17/21 04:04 Labs: Laboratory Results - last 24 hr 05/16/21 15:33: WBC 9.4, RBC 3.91 L, Hgb 11.9 L, Hct 34.0 L, MCV 87.0, MCH 30.4, MCHC 35.0, RDW Std Deviation 43.5, RDW Coeff of [place] 13.8, Plt Count 175, MPV 10.1, Immature Gran % (Auto) 0.400, Neut % (Auto) 83.8 H, Lymph % (Auto) 11.0 L, [place] % (Auto) 4.6, Eos % (Auto) 0.1, Baso % (Auto) 0.1, Absolute Neuts (auto) 7.9 H, Absolute Lymphs (auto) 1.04, Nucleated RBC % 0 05/16/21 15:33: Sodium 135 L, Potassium 2.6 L*, Chloride 100, Carbon Dioxide 25.0, Anion Gap 10, BUN 32 H, Creatinine 1.56 H, Estim Creat Clear Calc 30.67, Est GFR (MDRD) Af Amer 54 L, Est GFR (MDRD) Non-Af 45 L, BUN/Creatinine Ratio 20.5 H, Glucose 166 H, Calcium 9.2, Total Bilirubin 1.60 H, AST 48 H, ALT 34, Alkaline Phosphatase 77, Total Protein 6.7, Albumin 2.8 L, Globulin 3.9, Albumin/Globulin Ratio 0.7 L 05/16/21 15:33: Lactic Acid 3.1 H* 05/16/21 15:33: Magnesium 1.7 05/16/21 17:05: Urine Color Yellow, Urine Clarity Sl. Cloudy, Urine pH 6.0, Ur Specific [place] 1.020, Urine Protein 100 H, Urine Glucose (UA) 50 H, Urine Ketones 5 H, Urine Occult Blood 25 H, Urine Nitrite Positive H, Urine Bilirubin Negative, Urine Urobilinogen 1 H, Ur Leukocyte Esterase 500 H, Urine RBC 0-5 SEEN, Urine WBC 50-100 SEEN, Ur Squamous Epith Cells 0 SEEN, Ur Transition Epith Cell 0-5 SEEN, Urine Bacteria 2+, Urine Mucus 0 SEEN 05/16/21 20:27: Lactic Acid 1.3 05/16/21 21:58: POC Glucose 113 H 05/17/21 04:04: WBC 8.5, RBC 3.47 L, Hgb 10.4 L, Hct 30.0 L, MCV 86.5, MCH 30.0, MCHC 34.7, RDW Std Deviation 42.5, RDW Coeff of [place] 13.6, Plt Count 185, MPV 1 0.8, Immature Gran % (Auto) 0.500, Neut % (Auto) 82.6 H, Lymph % (Auto) 10.7 L, [place] % (Auto) 5.9, Eos % (Auto) 0.2, Baso % (Auto) 0.1, Absolute Neuts (auto) 7.1, Absolute Lymphs (auto) 0.91, Nucleated RBC % 0 05/17/21 04:04: Sodium 135 L, Potassium 3.1 L, Chloride 104, Carbon Dioxide 25.0, Anion Gap 6, BUN 26 H, Creatinine 1.07, Estim Creat Clear Calc 49.50, Est GFR (MDRD) Af Amer 84, Est GFR (MDRD) Non-Af 70, BUN/Creatinine Ratio 24.3 H, Glucose 173 H, Calcium 8.2 L 05/17/21 04:04: Phosphorus 2.3 L, Magnesium 1.9 05/17/21 06:27: POC Glucose 193 H Radiography Diagnostic Testing: Radiology Impression Brain CT 05/16/21 15:09 IMPRESSION: No acute intracranial hemorrhage or mass effect. Electronically Signed: Roldan Quispe MD ([place]) at 16:19 EDT , Chest X-Ray 05/16/21 16:10 IMPRESSION: 1. No airspace consolidation or pleural effusion. Electronically Signed: Roldan Quispe MD (Brooks) at 16:20 EDT , Physical Exam Const alert and no apparent distress HEENT head/scalp atraumatic and moist oral mucous membranes Head and Scalp: normocephalic Eyes PERRL and conjunctivae normal Neck no lymphadenopathy, supple and no JVD Resp normal respiratory effort, no retractions and no use of accessory muscles Cardio regular rate, regular rhythm and no JVD GI normal to inspection, nondistended, normoactive bowel sounds Extremity normal to inspection Skin no rashes or lesions noted Neuro CN's II-XII intact bilaterally Psych affect normal Assessment & Plan Assessment/Plan (1) Hypokalemia: (2) UTI (urinary tract infection): (3) Hypokalemia: (4) Metabolic encephalopathy: PLAN: Day 1 Discharge planning: To be determined if patient is to return to assisted living or is in need of SNF. PT/OT eval ordered. 1) acute cystitis Vital signs are stable and patient is afebrile. CBC does not demonstrate a leukocytosis. We will await cultures and continue Rocephin. 2) acute metabolic encephalopathy Secondary to #1. Appears improved from admission as patient is now alert to self and place, but not time. Patient mentation is diminished at baseline. Plan as above. 3) lactic acidosis Likely related to above, although infection does not appear to be profound. Plan as above, will hold home metformin and initiate fluids. 4) hypokalemia Potassium is currently 3.1. Unclear etiology, patient's daughter denies any nausea, vomiting or diarrhea. Will continue to replace with IV potassium and continue to monitor BMP. 5) ANDRE Resolved, creatinine currently back to baseline. 7) dementia Complicates #1, not on any home regimen. 8) diabetes mellitus type 2 Hold home Metformin given #3, Accu-Cheks sliding scale insulin ordered. DVT prophylaxis - Heparin Patient seen by Emeterio Butler PA-C, under the supervision of Dr. Espino. Time spent on patient care: 10 minutes. Documented by User: Dr. Dillon Altamirano MD 05/17/21 12:59 Objective Data Lab / Micro Data Result Diagrams: 05/17/21 04:04 05/17/21 04:04 Charges/Coding Addendum Addendum: Dr. Altamirano: I personally reviewed the chart and examined the patient, and agree with the above findings. 85-year-old male with a history of dementia presented to the hospital with altered mental status. On admission his daughter has noted that he does have chronic dementia but he seemed more confused than usual. He was found to have a UA consistent with a UTI and was started on IV antibiotics. A urine culture is pending. Phosphorus a little bit low today and this was replaced along with his potassium. He does appear per reports to be less confused today than he was yesterday. We will continue to monitor and await finalization of cultures and sensitivities. In the meantime, will have him oleg luated by PT/OT for discharge planning. Clinical time spent in all aspects of patient care: 18 minutes Visit Charges Inpatient E&M: 38588 Subs Hosp L2
[2021-05-17 12:21] LABS: Bedside Glucose 232 mg/dL (74-106)
--- NOTE | 2021-05-17 13:30 | CASEMGMT ---
DARRELL Note Referral Source: RN CM Referral Reason: Discharge Planning. Patient is from [facility] called [facility] and spoke to nurse Beckie. She advised that patient could return at discharge. She requested report from RN at PCU and thus PCU transferred Beckie to RN caring for the patient for report. RN JEFFREY updated Plan: Return to [facility]. Patient has Medicare On License Of [facility] [employer]
--- NOTE | 2021-05-17 16:26 | CM.ED ---
DARRELL spoke to JEFFREY Rocha who said that patient may possibility be discharged Wednesday. DARRELL completed green sheet for chart. DARRELL called patient's daughter, Zaynab Khan and updated her that there is a possibility that patient may be discharged tomorrow. She reports patient need pureed food. DARRELL advised to address any medical concerns to the staff on PCU and provided main number to PCU. DARRELL updated Richard the magnetic prospector regarding this conversation. Richard said that there is a possibility that patient could be discharged back to the [facility] on Wednesday. DARRELL called Jaclyn at [facility]. She was advised of the possibility of patient returning to [facility] on Wednesday. She provided this film writer with unit fax numbers which this film writer put on the green sheet. DARRELL sent green sheet to PCU. Plan: Return to [facility] Lise DAUGHERTY
[2021-05-17 16:55] LABS: Bedside Glucose 225 mg/dL (74-106)
[2021-05-17 22:17] LABS: Bedside Glucose 314 mg/dL (74-106)
[2021-05-18] VITALS (14 sets, daily range): BP systolic 114–143; BP diastolic 55–91; PULSE 75–91; RESP 20–24; TEMP 36.4–37.7; O2SAT 88–98
--- NOTE | 2021-05-18 00:42 | RAD_ITS ---
STUDY: X-RAY CHEST REASON FOR EXAM: Male, 85 years old. sob TECHNIQUE: AP portable upright COMPARISON: None. FINDINGS: There is patchy infiltrate at the right lung base and the left mid peripheral chest. There is no demonstrated pleural abnormality. There is moderate cardiomegaly. There are median sternotomy sutures. Normal mediastinum and cuco. Normal visualized pulmonary arteries. Normal visualized aortic arch and descending thoracic aorta. Normal visualized thoracic spine. Normal visualized ribs, clavicles, and shoulders. There is no demonstrated abnormality of the visualized soft tissue structures of the upper abdomen. RAD/Chest 1 View (Portable) IMPRESSION: There is cardiomegaly with patchy infiltrate bilaterally. Electronically Signed: Seth Banerjee MD at 1:15 EDT ,
[2021-05-18] MEDS: 0.9% Saline Lock 10 ML Syringe IV ×3 (00:53→21:48)
[2021-05-18] MEDS: Furosemide 40 MG/4 ML Vial IV ×3 (00:53→17:47)
--- NOTE | 2021-05-18 01:44 | EKG12_ITS ---
Test Reason : RHYTHM CHANGE Blood Pressure : / mmHG Vent. Rate : 101 BPM Atrial Rate : 101 BPM P-R Int : 210 ms QRS Dur : 082 ms QT Int : 344 ms P-R-T Axes : 084 027 084 degrees QTc Int : 446 ms Sinus tachycardia with 1st degree A-V block with Premature supraventricular complexes Anteroseptal infarct (cited on or before 02-FEB-2013) Abnormal ECG When compared with ECG of 03-FEB-2013 19:34, Premature supraventricular complexes are now Present Questionable change in initial forces of Anterior leads T wave inversion no longer evident in Lateral leads Confirmed by HEIDE PATEL, JANE ([id number]), book or script editor JORY JIMENEZ ([id number]) on 05/20/2021 8:55:24 AM Referred By: DR ORDAZ Confirmed By:JANE JAEGER MD
[2021-05-18] MEDS: Potassium Chloride Oral Tablet 20 MEQ 40 MEQ PO (02:07)
[2021-05-18 05:43] LABS: Absolute Lymphocyte Count 0.88 X10^3/uL (0.83-4.51); Absolute Neutrophil Count 9.7 X10^3/uL (2.0-7.7); Basophil# 0.03 X10^3/uL; Basophil% 0.3 % (0-1); Eosinophil# 0.05 X10^3/uL; Eosinophils% 0.4 % (0-5); Hematocrit 32.9 % (40-54); Hemoglobin 11.3 g/dL (13.0-16.5); Lymphocyte # 0.88 X10^3/ul (0.83-4.51); Lymphocyte % 7.7 % (19-41); Mean Corp Hgb Conc 34.3 g/dL (32-36); Mean Corpuscular Volume 84.4 fL (80-94); Mean Platelet Vol. 10.1 fl (6.2-12.0); Monocyte# 0.78 X10^3/uL; Monocyte% 6.8 % (0-10); NRBC Flagged by Analyzer 0 % (0-5); Neutrophil # 9.72 X10^3/uL (2.7-7.7); Neutrophil % 84.5 % (47-70); Platelet Count 198 K/mm3 (150-450); RBC Distribution Width CV 13.6 % (11.6-14.6); RBC Distribution Width SD 41.9 fl (35.1-43.9); White Blood Count 11.5 K/mm3 (4.4-11.0)
[2021-05-18 06:13] LABS: Anion Gap 6 (5-15); BUN 21 mg/dL (7-18); BUN/Creat Ratio 17.6 RATIO (10-20); Calcium,Total 8.5 mg/dL (8.5-10.1); Chloride 102 mmol/L (98-107); Creatinine, Serum 1.19 mg/dL (0.70-1.30); EST Glomerular Filtration Rate 62 mL/min (>60); Est Glom Filt Rate - Afr Amer 74 mL/min (>60); Glucose 294 mg/dL (74-106); Magnesium 1.6 mg/dL (1.6-2.6); Potassium 3.5 mmol/L (3.5-5.1); Sodium Level 133 mmol/L (136-145)
[2021-05-18] MEDS: Insulin Lispro 100 UNIT/ML INSULN.PEN SC ×6 (06:44→21:47)
[2021-05-18] MEDS: Ondansetron 4 MG/2 ML Vial IV (06:45)
[2021-05-18 06:55] LABS: Bedside Glucose 287 mg/dL (74-106)
[2021-05-18] MEDS: Aspirin E.C. 81 MG Tablet PO (07:52)
[2021-05-18] MEDS: Ceftriaxone 1 GM/50 ML BAG IV (10:27)
[2021-05-18] MEDS: Tamsulosin HCl 0.4 MG Capsule 0.8 MG PO (10:56)
[2021-05-18] MEDS: Atorvastatin Calcium 20 MG Tablet PO (10:56)
[2021-05-18] MEDS: Heparin Injection (Vial) 5,000 UNIT/ML VIAL 5000 UNIT SC ×2 (10:56→21:47)
[2021-05-18] MEDS: Metoprolol Tartrate 25 MG Tablet PO ×2 (10:56→21:47)
--- NOTE | 2021-05-18 10:56 | PN.HOSP_ITS ---
Documented by User: Emeterio WASSERMAN 05/18/21 11:06 Subjective Subjective Patient is an 85-year-old male comfortably resting in bed, alert and oriented x1. Patient mentation appears about the same as yesterday, mentation limited at baseline secondary to dementia. Patient did develop an episode of hypoxia in the evening, now on 2 L. Objective Data Objective Data Vital Signs: Vital Signs Temp Pulse Resp BP Pulse Ox 97.9 F 86 20 H 118/70 98 05/18/21 10:51 05/18/21 10:51 05/18/21 10:51 05/18/21 10:51 05/18/21 10:51 Oxygen Flow Rate (L/min) 2 Oxygen Delivery Method Nasal Cannula Weight: 155 lb 10.342 oz Body Mass Index (BMI) 22.3 Intake & Output: Intake and Output for Last 24 Hours 05/16/21 05/17/21 05/18/21 23:59 23:59 23:59 Intake Total 1948.33 / 1948.33 3137 / 3137 690 / 690 Output Total 875 / 875 1750 / 1750 Balance 1948.33 / 1848.33 2262 / 2262 -1060 / -1060 Lab / Micro Data Result Diagrams: 05/18/21 05:14 05/18/21 05:14 Labs: Laboratory Results - last 24 hr 05/17/21 12:07: POC Glucose 232 H 05/17/21 16:01: POC Glucose 225 H 05/17/21 21:57: POC Glucose 314 H 05/18/21 05:14: WBC 11.5 H, RBC 3.90 L, Hgb 11.3 L, Hct 32.9 L, MCV 84.4, MCH 29.0, MCHC 34.3, RDW Std Deviation 41.9, RDW Coeff of Dahiana 13.6, Plt Count 198, MPV 10.1, Immature Gran % (Auto) 0.300, Neut % (Auto) 84.5 H, Lymph % (Auto) 7.7 L, Wood[place] % (Auto) 6.8, Eos % (Auto) 0.4, Baso % (Auto) 0.3, Absolute Neuts (auto) 9.7 H, Absolute Lymphs (auto) 0.88, Nucleated RBC % 0 05/18/21 05:14: Sodium 133 L, Potassium 3.5, Chloride 102, Carbon Dioxide 25.0, Anion Gap 6, BUN 21 H, Creatinine 1.19, Estim Creat Clear Calc 44.50, Est GFR (MDRD) Af Amer 74, Est GFR (MDRD) Non-Af 62, BUN/Creatinine Ratio 17.6, Glucose 294 H, Calcium 8.5, Magnesium 1.6 05/18/21 06:43: POC Glucose 287 H Micro: Microbiology 05/16/21 15:05 Urine, Random Urine Culture - Preliminary GNR lactose scale model maker Radiography Diagnostic Testing: Radiology Impression Chest X-Ray 05/18/21 00:42 IMPRESSION: There is cardiomegaly with patchy infiltrate bilaterally. Electronically Signed: Seth Banerjee MD at 1:15 EDT , Physical Exam Const alert, oriented x3 and no apparent distress HEENT head/scalp atraumatic and moist oral mucous membranes Head and Scalp: normocephalic Eyes PERRL and conjunctivae normal Neck no lymphadenopathy, supple and no JVD Resp no retractions Effort and Inspection: tachypneic and labored Auscultation: wheezes and diminished lung sounds Cardio regular rate, regular rhythm and no JVD GI normal to inspection, nondistended, normoactive bowel sounds Extremity normal to inspection Skin no rashes or lesions noted Neuro Neuro Narrative: Unable to assess. Psych Psych Narrative: Unable to assess. Assessment & Plan Assessment/Plan (1) Lactic acidosis: (2) Acute cystitis: (3) Metabolic encephalopathy: (4) Hypokalemia: (5) UTI (urinary tract infection): PLAN: Day 2 Discharge planning: To be determined if patient is to return to assisted living or is in need of SNF. PT/OT eval ordered. 1) acute cystitis WBC is elevated to 11,000, up from yesterday. Urine culture shows GNR lactose scale model maker, will continue Rocephin and await sensitivity/speciation. 2) acute hypoxia Secondary to possible community-acquired pneumonia. Patient developed hypoxia in the evening of 05/17, chest x-ray obtained and demonstrated bilateral patchy infiltrates that are more prominent than chest x-ray taken on admission. Will obtain viral respiratory panel, we will initiate azithromycin and continue Ro cephin for empiric coverage as patient has been hospitalized less than 48 hours, continue supplemental oxygen and wean as tolerated. 3) acute metabolic encephalopathy Appears improved from admission as patient is now alert to self and place, but not time. Patient mentation is diminished at baseline. Plan as above. 4) lactic acidosis Likely related to above, although infection does not appear to be profound. Plan as above, will hold home metformin and initiate fluids. 5) hypokalemia Resolved, potassium currently 3.5, continue to monitor BMP. 6) ANDRE Resolved, creatinine currently back to baseline. 7) dementia Complicates #1, not on any home regimen. 8) diabetes mellitus type 2 Hold home Metformin given #3, Accu-Cheks sliding scale insulin ordered. DVT prophylaxis - Heparin Patient seen by Emeterio Butler PA-C, under the supervision of Dr. Espino. Time spent on patient care: 9 minutes. Documented by User: Dr. Dillon Altamirano MD 05/18/21 12:24 Objective Data Lab / Micro Data Result Diagrams: 05/18/21 05:14 05/18/21 05:14 Charges/Coding Addendum Addendum: Dr. Altamirano: I personally reviewed the chart and examined the patient, and agree with the above findings. 85-year-old male with a history of dementia presented to the hospital with altered mental status. On admission his daughter has noted that he does have chronic dementia but he seemed more confused than usual. He was found to have a UA consistent with a UTI and was started on IV antibiotics. A urine culture is pending. Phosphorus a little bit low today and this was replaced along with his potassium. He does appear per reports to be less confused today than he was yesterday. We will continue to monitor and await finalization of cultures and sensitivities. In the meantime, will have him evaluated by PT/OT for discharge planning. Clinical time spent in all aspects of patient care: 18 minutes 05/18/2021: Seems much better today, still confused but this is likely his baseline. Overnight he had to be placed on 2 L of oxygen and a chest x-ray was obtained which showed increased bilateral pulmonary infiltrates. We will expand his antibiotic regimen to include azithromycin to cover any atypical pneumonias. Also obtain a respiratory panel to rule out any viral illness at this time. Continue to await finalization of his urine culture. Clinical time spent in all aspects of patient care: 17 minutes Visit Charges Inpatient E&M: 09024 Subs Hosp L2
[2021-05-18] MEDS: Insulin Glargine-YFGN 100 UNIT/ML Pen 25 UNIT SC (10:57)
[2021-05-18 11:55] LABS: Bedside Glucose 307 mg/dL (74-106)
[2021-05-18 16:45] LABS: Bedside Glucose 214 mg/dL (74-106)
[2021-05-18 22:06] LABS: Bedside Glucose 156 mg/dL (74-106)
[2021-05-19] VITALS (8 sets, daily range): BP systolic 100–117; BP diastolic 50–67; PULSE 80–94; RESP 18; TEMP 36.4–36.6; O2SAT 93–95
[2021-05-19 05:28] LABS: Absolute Lymphocyte Count 1.64 X10^3/uL (0.83-4.51); Absolute Neutrophil Count 7.5 X10^3/uL (2.0-7.7); Basophil# 0.02 X10^3/uL; Basophil% 0.2 % (0-1); Eosinophil# 0.26 X10^3/uL; Eosinophils% 2.6 % (0-5); Hematocrit 34.7 % (40-54); Hemoglobin 12.2 g/dL (13.0-16.5); Lymphocyte # 1.64 X10^3/ul (0.83-4.51); Lymphocyte % 16.1 % (19-41); Mean Corp Hgb Conc 35.2 g/dL (32-36); Mean Corpuscular Hgb 29.9 pg (27.0-32.0); Monocyte# 0.74 X10^3/uL; Monocyte% 7.3 % (0-10); NRBC Flagged by Analyzer 0 % (0-5); Neutrophil # 7.45 X10^3/uL (2.7-7.7); Neutrophil % 73.3 % (47-70); Platelet Count 195 K/mm3 (150-450); RBC Distribution Width CV 13.6 % (11.6-14.6); RBC Distribution Width SD 42.3 fl (35.1-43.9); Red Blood Count 4.08 M/mm3 (4.6-6.2); White Blood Count 10.2 K/mm3 (4.4-11.0)
[2021-05-19 05:54] LABS: Anion Gap 8 (5-15); BUN 23 mg/dL (7-18); BUN/Creat Ratio 18.5 RATIO (10-20); Calcium,Total 8.2 mg/dL (8.5-10.1); Chloride 96 mmol/L (98-107); Creatinine, Serum 1.24 mg/dL (0.70-1.30); EST Glomerular Filtration Rate 59 mL/min (>60); Est Glom Filt Rate - Afr Amer 71 mL/min (>60); Glucose 145 mg/dL (74-106); Sodium Level 134 mmol/L (136-145)
[2021-05-19] MEDS: Insulin Lispro 100 UNIT/ML INSULN.PEN SC ×4 (08:13→12:17)
[2021-05-19] MEDS: Aspirin E.C. 81 MG Tablet PO (08:14)
[2021-05-19] MEDS: Potassium Chloride Oral Tablet 20 MEQ 60 MEQ PO (08:15)
--- NOTE | 2021-05-19 08:56 | CASEMGMT ---
DARRELL noted patient is from [facility]. DARRELL had a note to call patient's daughter. DARRELL called patient's daughter Zaynab. Patient is from assisted living and she would like patient to go to the senior living side. DARRELL told her SW will talk with Winter at [facility]. DARRELL let Zaynab know patient is ready today. DARRELL called Winter at [facility] and let her know above. Brissa VELEZ
--- NOTE | 2021-05-19 09:03 | TREXTCAR_ITS ---
Diet 05/17/21 11:47 Diet: Consistent Carb - Calorie Controlled Food consistency:: Pureed Liquid Consistency:: Regular/Thin Type of Dietary Supplement:: Glucerna Shake Diet Comments: 120ml glucerna shake TID w/ meals How many daily calories?: 1600 calorie Routine Orders/Code Status Enema Type: Fleetz Enema Frequency: Daily PRN Suppository Type: Dulcolax 10mg Suppository Frequency: Daily PRN Keep PO Greater than or Equal to (%): 92 Routine Lab Work: - (CBC, BMP within 1 week.) Code Status: DNRCC-A (DNR-CCA, no intubation.) Wound(s) left heel: Wound Type: Skin Tear coccyx: Wound Type: Pressure Injury left knee: Wound Type: Abrasion bilateral buttocks: Wound Type: Pressure Injury right buttock: Wound Type: Pressure Injury Suggestions for Active Care Change Position every (hours): 2 Hours to sit in a chair: 4 Times a day to sit in chair: 3 Therapies Weight Bearing: Weight bearing as tolerated Physical Therapy: Eval and Treat Occupational Therapy: Eval and Treat Speech Therapy: Eval and Treat Problem/Diagnosis (1) Lactic acidosis: Status: Acute (2) Acute cystitis: Status: Acute (3) Metabolic encephalopathy: Status: Acute (4) Hypokalemia: Status: Acute (5) UTI (urinary tract infection): Status: Acute Allergies/Procedures Done in Hospital Allergies No Known Allergies Allergy (Verified 07/24/20 14:40) Procedures: EKG Type of Care/Length of Stay Estimated LOS: Convalescent Care Less Than 30 days Type of Care Needed: Skilled Rehab Potential: Good Prognosis: Good Additional Orders/Day of Discharge Additional Orders: (1) Aspiration and fall precautions, (2) HOB > 30 degrees, (3) Turn q 2 hours for offloading, (4) Wound RN to follow for prevention, (5) Continue speech therapy evaluation, on pureed diet currently with concern for aspiration during admission (on treatment for aspiration PNA). Day of Discharge: 05/19/21 Dietary and Speech Recommendations Dietitian Recommendations/Changes: Will change diet to 1600 calorie/consistent carbohydrate. Will add 120 ml glucena shake TID w/ meals. Patient with noted hx of dysphagia, monitor need for STOCK DEALER evaluation as PO established at meals. Offer [place] as needed, will try glucerna first for tolerance. Discharge Plan Admission Admit Date/Time: 05/16/21 17:53 Primary Reason for Your Visit: Acute E. Coli UTI, CAP, Acute Renal Insufficiency Attending Provider: Barby Gooden Primary Care Provider: Wilner Serna Discharge Orders/Prescriptions Prescriptions: New insulin lispro [Humalog KwikPen Insulin] 100 unit/mL Insulin Pen 5 unit subcut TIDAC 30 Days Qty: 4.5 RF: 0 amoxicillin-pot clavulanate 875-125 mg tablet 1 tab PO BID 7 Days Qty: 14 RF: 0 potassium chloride [Klor-Con] 20 mEq packet 20 meq PO BID 30 Days Qty: 60 RF: 0 Continued metformin 1,000 MG tablet 1,000 mg PO BIDCM RF: 0 cyanocobalamin (vitamin B-12) [Vitamin B-12] 1,000 mcg Tablet 1,000 mcg PO DAILY RF: 0 aspirin [Aspirin Low Dose] 81 mg Tablet,Delayed Release (Dr/Ec) 81 mg PO DAILY RF: 0 tamsulosin 0.4 mg capsule 0.8 mg PO DAILY RF: 0 hydrochlorothiazide 12.5 mg capsule 12.5 mg PO DAILY RF: 0 cholecalciferol (vitamin D3) 25 mcg (1,000 unit) Capsule 25 mcg PO DAILY RF: 0 rosuvastatin 20 mg tablet 10 mg PO DAILY RF: 0 metoprolol tartrate 25 mg tablet 25 mg PO BID RF: 0 albuterol sulfate 90 mcg/actuation Aero Powdr Breath Act W/Sensor 180 mcg INHALATION Q4H PRN (Reason: BREATHING) RF: 0 Changed insulin lispro [Humalog KwikPen Insulin] 100 unit/mL insulin pen 5 unit SUBCUT TIDCM Qty: 0 RF: 0 Lantus Solostar U-100 Insulin 100 unit/mL (3 mL) insulin pen 20 unit SUBCUT DAILY Qty: 0 RF: 0 Discontinued ondansetron HCl 4 mg tablet 4 mg PO Q8H PRN (Reason: Nausea And Vomiting) RF: 0 Referrals / Follow Up: Wilner Serna MD [Primary Care Provider] - (Follow-up upon discharge once returned to SNF within 2-3 days.) Disposition Disposition (needs filled in before D/C Order can be placed): [facility]
--- NOTE | 2021-05-19 09:19 | WOUNDNOTE ---
wound photo: right buttock/coccyx
--- NOTE | 2021-05-19 09:22 | WOUNDNOTE ---
wound photo: left heel
--- NOTE | 2021-05-19 09:24 | CASEMGMT ---
SW faxed updates and d/c orders to [place]. DARRELL will set up transport once COVID test is done. Plan: d/c to [place] under skilled level of care on a convalescent stay. [facility] transported via cot. Brissa VELEZ
[2021-05-19] MEDS: Tamsulosin HCl 0.4 MG Capsule 0.8 MG PO (10:15)
[2021-05-19] MEDS: Heparin Injection (Vial) 5,000 UNIT/ML VIAL 5000 UNIT SC (10:15)
[2021-05-19] MEDS: Furosemide 40 MG/4 ML Vial IV (10:15)
[2021-05-19] MEDS: Atorvastatin Calcium 20 MG Tablet PO (10:16)
[2021-05-19] MEDS: Metoprolol Tartrate 25 MG Tablet PO (10:16)
[2021-05-19 10:20] LABS: Bedside Glucose 164 mg/dL (74-106)
--- NOTE | 2021-05-19 10:28 | PCM.DC.SUM ---
Documented by User: Emeterio WASSERMAN 05/19/21 10:34 Providers Date of Admission: 05/16/21 Primary Care Physician: Dr. Wilner Serna MD Consultations 05/17/21 14:35 Consult: Onc/Wound/attending pathologist Routine Comment: Reason For Visit: HYPOKALEMIA, DEHYDRATION, CYSTITIS Diagnosis Discharge Diagnosis (1) Lactic acidosis: Status: Acute Code(s): E87.2 - Acidosis (2) Acute cystitis: Status: Acute Code(s): N30.00 - Acute cystitis without hematuria (3) Metabolic encephalopathy: Status: Acute Code(s): G93.41 - Metabolic encephalopathy (4) Hypokalemia: Status: Acute Code(s): E87.6 - Hypokalemia (5) UTI (urinary tract infection): Status: Acute Code(s): N39.0 - Urinary tract infection, site not specified Medications at Discharge Home Medications metformin 1,000 mg PO BIDCM 02/02/13 albuterol sulfate 180 mcg INHALATION Q4H PRN 05/16/21 aspirin [Aspirin Low Dose] 81 mg PO DAILY 05/16/21 cholecalciferol (vitamin D3) 25 mcg PO DAILY 05/16/21 cyanocobalamin (vitamin B-12) [Vitamin B-12] 1,000 mcg PO DAILY 05/16/21 hydrochlorothiazide 12.5 mg PO DAILY 05/16/21 metoprolol tartrate 25 mg PO BID 05/16/21 rosuvastatin 10 mg PO DAILY 05/16/21 tamsulosin 0.8 mg PO DAILY 05/16/21 Lantus Solostar U-100 Insulin 20 unit SUBCUT DAILY #0 ml 05/19/21 amoxicillin-pot clavulanate 1 tab PO BID 7 Days #14 tab 05/19/21 insulin lispro [Humalog KwikPen Insulin] 5 unit SUBCUT TIDAC 30 Days #4.5 ml 05/19/21 insulin lispro [Humalog KwikPen Insulin] 5 unit SUBCUT TIDCM #0 ml 05/19/21 potassium chloride [Klor-Con] 20 meq PO BID 30 Days #60 ea 05/19/21 Hospital Course Summary of Care Provided Minutes Spent on Discharge: 20 Hospital Course: Patient is an 85-year-old male who was admitted to [facility] on 05/16/2021 for evaluation and management of altered mental status secondary to acute cystitis. Patient was placed on empiric Rocephin and urine cultures were obtained. Urine cultures showed E. coli with sensitivities to cephalosporins as well as penicillins. On the evening of 05/17 patient developed hypoxia and more short of breath, chest x-ray was obtained and demonstrated bilateral patchy infiltrates that were more prominent than on admission. There was a concern for aspiration given patient's chronic dysphagia and given worsening respiratory status patient's antibiotic coverage was broadened. Rapid Covid and viral respiratory panel obtained and were both negative. On day of discharge patient's respiratory status had greatly improved and his mentation appeared back to baseline according to family. Patient was discharged on Augmentin based off of urine sensitivities and to cover for possible aspiration pneumonia. Patient will be discharged back to SNF for ongoing skilled therapy and rehab. Patient seen by Emeterio Butler PA-C, under the supervision of Dr. Gooden. Time spent on patient care: 20 minutes. Physical Exam Narrative Patient is a 85-year-old male comfortably resting in bed, alert and oriented x2. Patient unable to provide much insight to his current condition as he does confused at baseline secondary to dementia. Hypoxia has resolved and is no longer requiring oxygen. Does not appear in acute distress. Const alert and no apparent distress HEENT normocephalic, head/scalp atraumatic and hearing grossly normal bilaterally Eyes PERRL and conjunctivae normal Neck no lymphadenopathy, supple and no JVD Resp normal respiratory effort, no retractions and no use of accessory muscles Cardio regular rate, regular rhythm and no JVD GI normal to inspection, nondistended, normoactive bowel sounds Extremity normal to inspection Skin no rashes or lesions noted Neuro Neuro Narrative: Unable to assess. Psych affect normal Weight / BMI Weight Weight: 155 lb 10.342 oz Body Mass Index (BMI) 22.3 ABG / Lab / Microbiology Data Result Diagrams: 05/19/21 04:56 05/19/21 04:56 Laboratory: Laboratory Results - last 24 hr 05/18/21 11:50: POC Glucose 307 H 05/18/21 16:31: POC Glucose 214 H 05/18/21 21:45: POC Glucose 156 H 05/19/21 04:56: WBC 10.2, RBC 4.08 L, Hgb 12.2 L, Hct 34.7 L, MCV 85.0, MCH 29.9, MCHC 35.2, RDW Std Deviation 42.3, RDW Coeff of Dahiana 13.6, Plt Count 195, MPV 10.0, Immature Gran % (Auto) 0.500, Neut % (Auto) 73.3 H, Lymph % (Auto) 16.1 L, Allen % (Auto) 7.3, Eos % (Auto) 2.6, Baso % (Auto) 0.2, Absolute Neuts (auto) 7.5, Absolute Lymphs (auto) 1.64, Nucleated RBC % 0 05/19/21 04:56: Sodium 134 L, Potassium 3.0 L, Chloride 96 L, Carbon Dioxide 30.0, Anion Gap 8, BUN 23 H, Creatinine 1.24, Estim Creat Clear Calc 42.70, Est GFR (MDRD) Af Amer 71, Est GFR (MDRD) Non-Af 59 L, BUN/Creatinine Ratio 18.5, Glucose 145 H, Calcium 8.2 L 05/19/21 08:07: POC Glucose 164 H Microbiology: Microbiology 05/16/21 15:05 Urine, Random Urine Culture - Final Escherichia coli 05/18/21 10:45 Mucosa - Nose Respiratory Panel (PCR) - Final Meaningful Use Info Meaningful Use Diagnoses (Choose all that apply): None applicable Discharge Plan Admission Admit Date/Time: 05/16/21 17:53 Primary Reason for Your Visit: Acute E. Coli UTI, CAP, Acute Renal Insufficiency Attending Provider: Barby Gooden Primary Care Provider: Wilner Serna Discharge Orders/Prescriptions Prescriptions: New insulin lispro [Humalog KwikPen Insulin] 100 unit/mL Insulin Pen 5 unit subcut TIDAC 30 Days Qty: 4.5 RF: 0 amoxicillin-pot clavulanate 875-125 mg tablet 1 tab PO BID 7 Days Qty: 14 RF: 0 potassium chloride [Klor-Con] 20 mEq packet 20 meq PO BID 30 Days Qty: 60 RF: 0 Continued metformin 1,000 MG tablet 1,000 mg PO BIDCM RF: 0 cyanocobalamin (vitamin B-12) [Vitamin B-12] 1,000 mcg Tablet 1,000 mcg PO DAILY RF: 0 aspirin [Aspirin Low Dose] 81 mg Tablet,Delayed Release (Dr/Ec) 81 mg PO DAILY RF: 0 tamsulosin 0.4 mg capsule 0.8 mg PO DAILY RF: 0 hydrochlorothiazide 12.5 mg capsule 12.5 mg PO DAILY RF: 0 cholecalciferol (vitamin D3) 25 mcg (1,000 unit) Capsule 25 mcg PO DAILY RF: 0 rosuvastatin 20 mg tablet 10 mg PO DAILY RF: 0 metoprolol tartrate 25 mg tablet 25 mg PO BID RF: 0 albuterol sulfate 90 mcg/actuation Aero Powdr Breath Act W/Sensor 180 mcg INHALATION Q4H PRN (Reason: BREATHING) RF: 0 Changed insulin lispro [Humalog KwikPen Insulin] 100 unit/mL insulin pen 5 unit SUBCUT TIDCM Qty: 0 RF: 0 Lantus Solostar U-100 Insulin 100 unit/mL (3 mL) insulin pen 20 unit SUBCUT DAILY Qty: 0 RF: 0 Discontinued ondansetron HCl 4 mg tablet 4 mg PO Q8H PRN (Reason: Nausea And Vomiting) RF: 0 Referrals / Follow Up: Wilner Serna MD [Primary Care Provider] - (Follow-up upon discharge once returned to SNF within 2-3 days.) Disposition Disposition (needs filled in before D/C Order can be placed): [facility] Documented by User: Dr. Barby Gooden MD 05/19/21 12:44 Providers Date of Admission: 05/16/21 Reason For Visit: HYPOKALEMIA, DEHYDRATION, CYSTITIS Medications at Discharge Home Medications metformin 1,000 mg PO BIDCM 02/02/13 albuterol sulfate 180 mcg INHALATION Q4H PRN 05/16/21 aspirin [Aspirin Low Dose] 81 mg PO DAILY 05/16/21 cholecalciferol (vitamin D3) 25 mcg PO DAILY 05/16/21 cyanocobalamin (vitamin B-12) [Vitamin B-12] 1,000 mcg PO DAILY 05/16/21 hydrochlorothiazide 12.5 mg PO DAILY 05/16/21 metoprolol tartrate 25 mg PO BID 05/16/21 rosuvastatin 10 mg PO DAILY 05/16/21 tamsulosin 0.8 mg PO DAILY 05/16/21 Lantus Solostar U-100 Insulin 20 unit SUBCUT DAILY #0 ml 05/19/21 amoxicillin-pot clavulanate 1 tab PO BID 7 Days #14 tab 05/19/21 insulin lispro [Humalog KwikPen Insulin] 5 unit SUBCUT TIDAC 30 Days #4.5 ml 05/19/21 insulin lispro [Humalog KwikPen Insulin] 5 unit SUBCUT TIDCM #0 ml 05/19/21 potassium chloride [Klor-Con] 20 meq PO BID 30 Days #60 ea 05/19/21 ABG / Lab / Microbiology Data Result Diagrams: 05/19/21 04:56 05/19/21 04:56 Discharge Plan Admission Admit Date/Time: 05/16/21 17:53 Primary Reason for Your Visit: Acute E. Coli UTI, CAP, Acute Renal Insufficiency Attending Provider: Barby Gooden Primary Care Provider: Wilner Serna Discharge Orders/Prescriptions Prescriptions: New insulin lispro [Humalog KwikPen Insulin] 100 unit/mL Insulin Pen 5 unit subcut TIDAC 30 Days Qty: 4.5 RF: 0 amoxicillin-pot clavulanate 875-125 mg tablet 1 tab PO BID 7 Days Qty: 14 RF: 0 potassium chloride [Klor-Con] 20 mEq packet 20 meq PO BID 30 Days Qty: 60 RF: 0 Continued metformin 1,000 MG tablet 1,000 mg PO BIDCM RF: 0 cyanocobalamin (vitamin B-12) [Vitamin B-12] 1,000 mcg Tablet 1,000 mcg PO DAILY RF: 0 aspirin [Aspirin Low Dose] 81 mg Tablet,Delayed Release (Dr/Ec) 81 mg PO DAILY RF: 0 tamsulosin 0.4 mg capsule 0.8 mg PO DAILY RF: 0 hydrochlorothiazide 12.5 mg capsule 12.5 mg PO DAILY RF: 0 cholecalciferol (vitamin D3) 25 mcg (1,000 unit) Capsule 25 mcg PO DAILY RF: 0 rosuvastatin 20 mg tablet 10 mg PO DAILY RF: 0 metoprolol tartrate 25 mg tablet 25 mg PO BID RF: 0 albuterol sulfate 90 mcg/actuation Aero Powdr Breath Act W/Sensor 180 mcg INHALATION Q4H PRN (Reason: BREATHING) RF: 0 Changed insulin lispro [Humalog KwikPen Insulin] 100 unit/mL insulin pen 5 unit SUBCUT TIDCM Qty: 0 RF: 0 Lantus Solostar U-100 Insulin 100 unit/mL (3 mL) insulin pen 20 unit SUBCUT DAILY Qty: 0 RF: 0 Discontinued ondansetron HCl 4 mg tablet 4 mg PO Q8H PRN (Reason: Nausea And Vomiting) RF: 0 Referrals / Follow Up: Wilner Serna MD [Primary Care Provider] - (Follow-up upon discharge once returned to SNF within 2-3 days.) Disposition Disposition (needs filled in before D/C Order can be placed): [facility]
--- NOTE | 2021-05-19 10:42 | CASEMGMT ---
SW arranged for patient to get picked up at 1p via cot. SW faxed orders, COVID test, and continuous pickling line pickler time to [facility]. SW notified RN, hospice patient care secretary, and patient's daughter. Plan: d/c to [place] under skilled level of care on a convalescent stay. [facility] will transport patient via cot. Brissa Madison TWISTER FRAME TENDER ROSIE
[2021-05-19] MEDS: Insulin Glargine-YFGN 100 UNIT/ML Pen 25 UNIT SC (12:19)
[2021-05-19 12:26] LABS: Bedside Glucose 276 mg/dL (74-106)
[2021-05-19 15:06] LABS: Bedside Glucose 238 mg/dL (74-106)
== END 2021-05-19 13:27 | disposition skilled nursing facility (03) | DRG 689 ==
LOC: ED 17:51 → PCU 17:58
PROVIDERS: Family Medicine; Physician Assistant; Admitting Provider Internal Medicine; Emergency Provider Emergency Medicine; PCP Family Medicine; Visit Provider Family Medicine
DX: N30.00 Acute cystitis without hematuria (principal); G93.41 Metabolic encephalopathy; J69.0 Pneumonitis due to inhalation of food and vomit; E87.2 Acidosis; E11.9 Type 2 diabetes mellitus without complications; B96.20 Unspecified Escherichia coli [E. coli] as the cause of diseases classified elsewhere; F03.90 Unspecified dementia, unspecified severity, without behavioral disturbance, psychotic disturbance, mood disturbance, and anxiety; Z79.4 Long term (current) use of insulin; E78.5 Hyperlipidemia, unspecified; E86.0 Dehydration; E87.6 Hypokalemia; N40.0 Benign prostatic hyperplasia without lower urinary tract symptoms; I25.10 Atherosclerotic heart disease of native coronary artery without angina pectoris; I10 Essential (primary) hypertension; D64.9 Anemia, unspecified; L89.629 Pressure ulcer of left heel, unspecified stage; N28.9 Disorder of kidney and ureter, unspecified; Z79.82 Long term (current) use of aspirin; Z79.899 Other long term (current) drug therapy; Z95.1 Presence of aortocoronary bypass graft; R53.81 Other malaise; R01.1 Cardiac murmur, unspecified; R09.02 Hypoxemia; R13.12 Dysphagia, oropharyngeal phase
CPT/HCPCS: 36415; 70450; 71045; 80048; 80053; 81001; 82962; 83605; 83735; 84100; 85025; 87077; 87086; 87088; 87186; 87426; 87633; 93005; 97110; 97163; 97166; 97530; 99285; J7030; J7050; A4216; J1940; J2405